=== PATIENT | female | born 1995 | race Caucasian/White ===

== ENCOUNTER 2019-12-20 11:45 | Emergency (ER) | payer OTHER ==
[~2019-12-20] VITALS: Ht 162.6 cm; Wt 69.8 kg
[~2019-12-20 11:45] MED LIST: CYCLOBENZAPRINE10 MG PO; MELOXICAM15 MG PO
[2019-12-20] MEDS ORDERED: NORCO 7.5-3251 EACH PO (13:12)
[2019-12-20] MEDS ORDERED: IBU800 MG PO (13:12)
== END 2019-12-20 13:22 | disposition home or self-care (01) ==
LOC: ED 11:45
DX: N93.8 Other specified abnormal uterine and vaginal bleeding (principal)
CPT/HCPCS: 81001; 84703; 85025; 99284; A9270

== ENCOUNTER 2021-03-05 08:37 | Emergency (ER) | payer OTHER ==
[~2021-03-05] VITALS: Ht 162.6 cm; Wt 69.8 kg
[~2021-03-05 08:37] MED LIST changes: +IBU800 MG PO; +NORCO 7.5-3251 EACH PO
[2021-03-05] MEDS ORDERED: CLINDAMYCIN HC300 MG PO (09:06)
--- NOTE | 2021-03-05 20:15 | EKG ---
[facility] [address] [facility] [place], [place] [address] Signed Sinus bradycardia with marked sinus arrhythmia Otherwise normal ECG No previous ECGs available Confirmed by SUZY LAL DO ([id number]) on 03/05/2021 8:15:27 PM Electronically Signed By: SUZY LAL DO 03/05/212014 PATIENT NAME: SUSAN CARR Electrocardiogram DATE OF : [birth year] PHYSICIAN: SUZY LAL DO REPORT #: [id number] REPORT IS CONFIDENTIAL AND NOT TO BE RELEASED WITHOUT AUTHORIZATION
== END 2021-03-05 10:20 | disposition home or self-care (01) ==
LOC: ED 08:37
DX: R07.89 Other chest pain (principal); J45.909 Unspecified asthma, uncomplicated; Z79.899 Other long term (current) drug therapy
CPT/HCPCS: 93005; 93010; 99284-25

== ENCOUNTER 2024-02-10 16:53 | Emergency (ER) | payer OTHER ==
[~2024-02-10] VITALS: Ht 162.6 cm; Wt 102.1 kg
[~2024-02-10 16:53] MED LIST changes: +CLINDAMYCIN HC300 MG PO
[2024-02-10] MEDS ORDERED: CEPHALEXIN500 M1 PO (18:44)
[2024-02-10] MEDS ORDERED: CEPHALEXIN MONOHYDRATE 500 MG CAP PO ONE (18:45)
[2024-02-10 18:50] VITALS: BP 118/80
== END 2024-02-10 18:49 | disposition home or self-care (01) ==
LOC: ED 16:53
DX: L03.116 Cellulitis of left lower limb (principal); Z88.6 Allergy status to analgesic agent
CPT/HCPCS: 99282; A9270

== ENCOUNTER 2024-07-05 14:24 | Emergency (ER) | payer OTHER ==
[~2024-07-05] VITALS: Ht 162.6 cm; Wt 98.1 kg
[~2024-07-05 14:24] MED LIST changes: +CEPHALEXIN500 M1 PO
[2024-07-05] MEDS ORDERED: OMEPRAZOLE20 MG PO (14:39)
[2024-07-05] MEDS ORDERED: DULERA 100 MCG/13 GM (14:39)
[2024-07-05] MEDS ORDERED: GABAPENTIN100 MG PO (14:39)
[2024-07-05] MEDS ORDERED: ELURYNG VAGINA1 EACH VG (14:39)
[2024-07-05 15:13] LABS: BASOPHILS 0.3 % (0-2); EOSINOPHILS 1.4 % (0-6); HEMATOCRIT 42.2 % (35.0-50.0); HEMOGLOBIN 14.2 g/dL (12.0-18.0); LYMPHOCYTES 24.7 % (24-44); MCH 29.2 (27-36); MCHC 33.6 g/dl (30-36); MCV 86.9 fl (81-99); MONOCYTES 8.2 % (0-12); NEUTROPHILS 65.4 % (39-80); PLATELET COUNT 180 K/uL (140-440); RBC 4.86 M/ul (4.3-5.7); RDW 12.4 (10.5-15.0)
[2024-07-05] MEDS ORDERED: HYDROmorphone HCL 1 MG/ML SYR IV PRN (15:15)
[2024-07-05 15:22] LABS: ALBUMIN/GLOBULIN RATIO 0.98 (1.1-2.4); ANION GAP 16.4 (7-21); BILIRUBIN, TOTAL 0.5 ng/dL (0.2-1.0); BUN/CREATININE RATIO 13.69 (6.0-28.6); CALCIUM 9.2 mg/dL (8.5-10.1); CREATININE, SERUM 0.73 mg/dL (0.55-1.02); POTASSIUM 3.4 mmol/L (3.5-5.1); PROTEIN, TOTAL 8.1 g/dL (6.4-8.2)
[2024-07-05] MEDS ORDERED: ondansetron HCL 4 MG/2 ML VIAL IV ONE (15:30)
[2024-07-05 16:49] VITALS: BP 120/85
== END 2024-07-05 16:50 | disposition home or self-care (01) ==
LOC: ED 14:24
PROVIDERS: Emergency Medicine
DX: R51.9 Headache, unspecified (principal); J45.909 Unspecified asthma, uncomplicated; Z88.6 Allergy status to analgesic agent; Z79.899 Other long term (current) drug therapy
CPT/HCPCS: 36415; 70450; 80053; 84703; 85025; 96374; 96375; 99284-25; J1171; J2405

== ENCOUNTER 2025-02-20 13:33 | Emergency (ER) | payer BC, OTHER ==
[~2025-02-20] VITALS: Ht 162.6 cm; Wt 97.4 kg
[~2025-02-20 13:33] MED LIST changes: +DULERA 100 MCG/13 GM; +ELURYNG VAGINA1 EACH VG; +GABAPENTIN100 MG PO; +OMEPRAZOLE20 MG PO
[2025-02-20] MEDS ORDERED: PREGABALIN50 MG PO (13:55)
[2025-02-20] MEDS ORDERED: MONTELUKAST SOD10 MG PO (13:56)
[2025-02-20] MEDS ORDERED: IPRAT-ALBUT 0.5-3 ML INH (13:56)
[2025-02-20] MEDS ORDERED: VENTOLIN HFA18 GM (13:56)
[2025-02-20 14:23] LABS: BASOPHILS 0.4 % (0.1-1.2); EOSINOPHILS 0 % (0.7-5.8); LYMPHOCYTES 16.6 % (19.3-51.7); MCH 28.9 PG (25.6-32.2); MCHC 33.2 g/dL (32.2-35.5); MCV 87.0 fL (79.4-94.8); MONOCYTES 5.7 % (4.7-12.5); NEUTROPHILS 77.0 % (34.0-71.1); RBC 4.39 M/uL (3.93-5.22)
[2025-02-20 14:42] LABS: ALT (SGPT) 25.0 U/L (14-59); AST (SGOT) 18.0 U/L (15-37); GLOMERULAR FILTRATION RATE,EST 125.0 mL/min (>60); PROTEIN, TOTAL 7.2 g/dL (6.4-8.2); UREA NITROGEN 14.0 mg/dL (7-18)
[2025-02-20] MEDS ORDERED: KEPPRA500 MG PO (18:42)
[2025-02-20] MEDS ORDERED: levETIRAcetam 500 MG TAB PO ONE (18:45)
[2025-02-20 18:50] VITALS: BP 134/82
== END 2025-02-20 19:02 | disposition home or self-care (01) ==
LOC: ED 13:33
PROVIDERS: Emergency Medicine
DX: R56.9 Unspecified convulsions (principal); J45.909 Unspecified asthma, uncomplicated; Z88.8 Allergy status to other drugs, medicaments and biological substances; Z79.899 Other long term (current) drug therapy
CPT/HCPCS: 36415; 70551; 80053; 84703; 85025; 99284-25